=== PATIENT | female | born 1955 | race Caucasian/White ===

== ENCOUNTER 2018-11-06 09:02 | Inpatient (IN) | payer OTHER, MEDICAID ==
[2018-11-06] MEDS: SOD CHLORIDE 0.9% 1,000 ML IV ×4 (09:28→20:51)
[2018-11-06] MEDS: ASPIRIN 81 MG TAB PO (09:28)
[2018-11-06] MEDS: DILTIAZEM 60 MG TAB PO (09:41)
[2018-11-06 10:04] LABS: ADD MAN DIFF? NO
[2018-11-06 10:05] LABS: BASOPHILS % 0.3 % (0.0-2.0); EOSINOPHILS % 0.2 % (0.0-7.0); HEMATOCRIT 34.7 % (37.0-47.0); HEMOGLOBIN 10.6 g/dl (12.0-16.0); LYMPHOCYTES # 0.8 10^3/ul (0.8-2.9); LYMPHOCYTES % 6.2 % (15.0-51.0); MEAN CORPUSCULAR HEMOGLOBIN 24.8 pg (29.0-33.0); MEAN CORPUSCULAR HGB CONC 30.5 g/dl (32.0-37.0); MEAN CORPUSCULAR VOLUME 81.3 fl (82.0-101.0); MEAN PLATELET VOLUME 8.9 fl (7.4-10.4); MONOCYTE # 0.6 10^3/ul (0.3-0.9); MONOCYTES % 4.6 % (0.0-11.0); NEUTROPHIL # 11.4 10^3/ul (1.6-7.5); NEUTROPHILS % 88.1 % (39.0-77.0); PLATELET COUNT 324 10^3/UL (140-415); RED BLOOD COUNT 4.27 10^6/ul (4.20-5.40); RED CELL DISTRIBUTION WIDTH 12.5 % (11.5-14.5)
[2018-11-06 10:24] LABS: INR 0.98; PROTIME 13.1 Sec (11.9-14.9)
[2018-11-06 10:25] LABS: PARTIAL THROMBOPLASTIN TIME 32.1 Sec (23.0-35.0)
[2018-11-06 10:27] LABS: ALBUMIN 3.7 g/dl (3.3-4.9); ALBUMIN/GLOBULIN RATIO 0.92; ALKALINE PHOSPHATASE 108 IU/L (42-121); ANION GAP 10 (5-13); ASPARTATE AMINO TRANSFERASE 9 IU/L (15-46); BILIRUBIN,INDIRECT 0.2 mg/dl (0-1.1); BILIRUBIN,TOTAL 0.2 mg/dl (0.2-1.3); BLOOD UREA NITROGEN 12 mg/dl (7-20); CALCIUM 9.3 mg/dl (8.4-10.2); CARBON DIOXIDE 28 mmol/L (21-31); CHLORIDE 97 mmol/L (97-110); CREATININE 0.42 mg/dl (0.44-1.00); Estimated GFR > 60 mL/min (>60); GLUCOSE 241 mg/dl (70-220); LIPASE 23 U/L (23-300); POTASSIUM 3.1 mmol/L (3.5-5.1); SODIUM 135 mmol/L (135-144); TOTAL PROTEIN 7.7 g/dl (6.1-8.1)
[2018-11-06 10:29] LABS: ALANINE AMINOTRANSFERASE < 6 IU/L (13-69)
[2018-11-06 10:38] LABS: TROPONIN-I 0.028 ng/ml (0.000-0.120)
[2018-11-06] MEDS ORDERED: ACETAMINOPHEN 325 MG TAB PO (11:00)
[2018-11-06] MEDS ORDERED: ONDANSETRON 4 MG INJ IV (11:00)
[2018-11-06] MEDS ORDERED: NACL 0.9% 3 ML SYG IV (11:00)
[2018-11-06] MEDS: FAMOTIDINE 20 MG TAB PO ×2 (12:03→21:16)
[2018-11-06] MEDS: ENOXAPARIN 40 MG/0.4 ML SYG SC (12:03)
[2018-11-06] MEDS: DILTIAZEM 25 MG INJ IV (12:07)
[2018-11-06] MEDS: INSULIN ASPART [NOVOLOG] 3 ML PEN SC ×3 (12:41→21:00)
[2018-11-06] MEDS: LIDOCAINE 1% (MPF) 5 ML VIAL (13:59)
[2018-11-06] MEDS: ZOLPIDEM 5 MG TAB PO (23:45)
[2018-11-07] MEDS: POTASSIUM CHLORIDE (SR) 20 MEQ TAB PO (05:17)
[2018-11-07 06:22] LABS: HEMOGLOBIN A1C 8.6 % (0-5.9)
[2018-11-07] MEDS: SOD CHLORIDE 0.9% 1,000 ML IV ×2 (06:51→08:00)
[2018-11-07] MEDS: INSULIN ASPART [NOVOLOG] 3 ML PEN SC ×2 (07:57→11:58)
[2018-11-07] MEDS: FAMOTIDINE 20 MG TAB PO (08:00)
[2018-11-07] MEDS: ENOXAPARIN 40 MG/0.4 ML SYG SC (08:05)
[2018-11-07] MEDS: METOPROLOL 50 MG TAB GTB (11:54)
== END 2018-11-07 15:19 | disposition home health service (06) | DRG 312 ==
LOC: E/R 09:02 → 6WM 10:46
PROC: 0W9B3ZZ Drainage of Left Pleural Cavity, Percutaneous Approach (ICD-10-PCS; principal; 2018-11-06)
DX: R55 Syncope and collapse (principal); J90 Pleural effusion, not elsewhere classified; C34.92 Malignant neoplasm of unspecified part of left bronchus or lung; E86.0 Dehydration; I10 Essential (primary) hypertension; E11.9 Type 2 diabetes mellitus without complications; F17.200 Nicotine dependence, unspecified, uncomplicated; J44.9 Chronic obstructive pulmonary disease, unspecified; I48.0 Paroxysmal atrial fibrillation; F20.9 Schizophrenia, unspecified
CPT/HCPCS: 32555; 71045; 71250; 80053; 82962; 83036; 83690; 84484; 85025; 85610; 85730; 93005; 93306; 96360; 99291-25